=== PATIENT | male | born 1975 | race Caucasian/White ===

== ENCOUNTER 2018-10-30 10:49 | Outpatient (CLI) | payer BC ==
--- NOTE | 2018-10-31 05:29 | Diagnostic Imaging Report ---
THOMPSON JOHNSON [facility] [address] [facility] [address] [place] [address]. [id number] Report Submission Date: Oct 30, 2018 11:21:35 AM AUTO APPRAISER Patient Study Name: SILVIA CASILLAS Date: Oct 30, 2018 10:56:47 AM AUTO APPRAISER Modality Type: CT\SR Gender: M Description: CT BRAIN W/O CONTRAST : 77 Institution: [facility] Physician: THOMPSON JOHNSON HEAD CT WITHOUT CONTRAST HISTORY: Headaches COMPARISON: None TECHNIQUE: Axial images were obtained from the skullbase to the vertex without IV contrast. FINDING: The ventricular system is normal in size and configuration. There is normal parenchymal attenuation. There is no positive mass effect or intra/extra-axial hemorrhage. Visualized paranasal sinuses and mastoid air cells are clear. The calvarium is intact. IMPRESSION: NO INTRACRANIAL ABNORMALITY. Electronically signed on Oct 30, 2018 11:21:35 AM AUTO APPRAISER by: Bri WILLS
== END 2018-10-30 10:50 ==
LOC: RAD 10:49
PROVIDERS: ATTEND Nurse Practitioner Family
DX: G44.1 Vascular headache, not elsewhere classified (principal)
CPT/HCPCS: 70450